=== PATIENT | female | born 1965 | race Caucasian/White ===

== ENCOUNTER 2024-03-12 21:44 | Observation (INO) ==
[2024-03-12 22:36] LABS: Hematocrit 18.1 % (35-45); Hemoglobin 6.6 g/dL (11.5-14.3); Mean Corpuscular Hemoglobin 34.9 pg (27-33); Mean Corpuscular Hgb Conc 36.8 g/dL (31-36); Mean Corpuscular Volume 94.9 fL (80-97); Mean Platelet Volume 8.2 fL (7.5-11.2); Platelet Count 56 10^3/uL (150-450); Red Cell Distribution Width 15.4 % (12-17); White Blood Count 1.6 10^3/uL (3.8-11.8)
[2024-03-12] MEDS: Lactated Ringers 1000 ml BAG 1,000 ML IV ONE (22:51)
[2024-03-12 23:38] LABS: Calcium 8.2 mg/dL (8.6-10.3); Creatinine, Serum 0.64 mg/dL (0.51-0.95); Potassium 2.5 mmol/L (3.5-5.0); eGFR CKD-EPI 102.4 (>60)
[2024-03-12] MEDS: KCL 20 MEQ/100 ML IVPREMIX 20 MEQ/100 ML BAG IV SCH (23:58)
[2024-03-13 00:17] LABS: C Reactive Protein 3.54 mg/L (<8.01); Magnesium 2.2 mg/dL (1.9-2.7)
[2024-03-13] MEDS: Potassium Chlor 20 meq TAB.ER PO ONE ×2 (01:33→09:45)
[2024-03-13] MEDS: Potassium Chloride LIQUID 20 MEQ/15 ML LIQUID PO ONE (01:36)
[2024-03-13 05:54] LABS: ABS Lymphocytes 0.1 10^3/uL (1.0-4.8); ABS Monocytes 0.4 10^3/uL (0.0-0.9); ABS Neutrophils 1.8 10^3/uL (1.5-7.6); Eosinophil % 1.7 %; Hematocrit 25.2 % (35-45); Hemoglobin 9.2 g/dL (11.5-14.3); Lymphocyte % 5.2 %; Mean Corpuscular Hemoglobin 33.2 pg (27-33); Mean Corpuscular Hgb Conc 36.5 g/dL (31-36); Mean Platelet Volume 7.8 fL (7.5-11.2); Nucleated Red Blood Cells % 0.1 %/100WBC (0.0-0.8); Platelet Count 40 10^3/uL (150-450); Red Blood Count 2.77 10^6/uL (3.63-4.92); Red Cell Distribution Width 16.7 % (12-17); White Blood Count 2.4 10^3/uL (3.8-11.8)
[2024-03-13 08:18] LABS: Calcium 7.8 mg/dL (8.6-10.3); Creatinine, Serum 0.52 mg/dL (0.51-0.95); eGFR CKD-EPI 107.6 (>60)
[2024-03-13] MEDS: KCL 20 MEQ/100 ML IVPREMIX 20 MEQ/100 ML BAG IV SCH (09:45)
[2024-03-13 14:23] VITALS: BP 116/61
== END 2024-03-13 12:00 | disposition short-term general hospital (02) ==
LOC: ED 21:44 → EDHOLD 21:44 → SUATTDRO 23:38 → EDHOLD 03-13 14:52
PROVIDERS: ADMIT Internal Medicine; ATTEND Internal Medicine